=== PATIENT | female | born 1935 | race Hispanic/Latino ===

== ENCOUNTER 2021-10-04 06:10 | Inpatient (IN) | payer OTHER, MEDICARE ==
[~2021-10-04] VITALS: Ht 154.9 cm; Wt 42.2 kg
[2021-10-04] MEDS ORDERED: 0.9%NACL 1000ML 500 ML IV ONE (06:30)
[2021-10-04] MEDS ORDERED: ONDANSETRON 4MG INJ IVP ONE (06:30)
[2021-10-04] MEDS ORDERED: 0.9% NACL 500ML IV.SOLN 500 ML IV ONE (06:47)
[2021-10-04 06:50] LABS: BASOPHILS % (AUTO) 0.1 % (0.0-5.0); HEMATOCRIT 30.9 % (36-48); MEAN CORPUSCULAR HEMOGLOBIN 24.5 pg (27.0-33.0); MEAN CORPUSCULAR VOLUME 76.5 fL (79-99); MONOCYTES % (AUTO) 3.4 % (3.0-13.0); NEUTROPHILS % (AUTO) 88.1 % (40.0-77.0); PLATELET COUNT (AUTO) 303 K/uL (130-400); RED BLOOD CELL COUNT(AUTO) 4.04 MIL/uL (4.00-5.50); RED CELL DISTRIBUTION WIDTH 19.9 % (11.0-15.5)
[2021-10-04 07:52] LABS: CREATININE 0.6 mg/dL (0.5-1.5)
[2021-10-04 08:00] LABS: ALBUMIN 2.7 g/dL (3.5-5.0); BILIRUBIN,TOTAL 0.5 mg/dL (0.2-1.0); TOTAL PROTEIN, SERUM 9.7 g/dL (6.0-8.3)
[2021-10-04 08:57] LABS: POTASSIUM 3.4 mmol/L (3.5-5.1)
[2021-10-04] MEDS ORDERED: DIPHENHYDRAMINE HCL 25 MG CAPSULE PO PRN (11:00)
[2021-10-04] MEDS ORDERED: ACETAMINOPHEN 325 MG TAB PO PRN (11:00)
[2021-10-04] MEDS ORDERED: GUAIFENESIN-DM 200/20 MG 10 ML PO PRN (11:00)
[2021-10-04] MEDS ORDERED: ONDANSETRON 4MG INJ IV PRN (11:00)
[2021-10-04] MEDS ORDERED: LACTULOSE 20 GM/30 ML UDCUP PO PRN (11:00)
[2021-10-04] MEDS ORDERED: MAG/ALUM/SIMETH 30 ML UDCUP PO PRN (11:00)
[2021-10-04] MEDS: LEVOFLOXACIN 500 MG/D5W 100 ML 100 ML IV SCH (11:36)
[2021-10-04] MEDS: 0.9%NACL 1000ML 1,000 ML IV SCH (11:36)
[2021-10-04 11:39] LABS: POTASSIUM 3.6 mmol/L (3.5-5.1)
[2021-10-04] MEDS ORDERED: 0.9% NACL 500ML IV.SOLN 500 ML IV SCH ×2 (13:30→16:00)
[2021-10-04 14:52] LABS: RETICULOCYTE % (AUTO) 1.13 % (0.42-2.23)
[2021-10-04 14:59] LABS: APPEARANCE,URINE Clear (CLEAR); BILIRUBIN,URINE Negative (NEGATIVE); COLOR,URINE Yellow (YELLOW); GLUCOSE, URINE (UA) Negative (NEGATIVE); KETONES,URINE Negative (NEGATIVE); LEUKOCYTE ESTERASE ,URINE Trace (NEGATIVE); NITRATE,URINE Negative (NEGATIVE); OCCULT BLOOD,URINE Negative (NEGATIVE); PROTEIN,URINE Trace mg/dL (NEGATIVE)
[2021-10-04 15:08] LABS: % IRON SATURATION 7.5 % (22-44)
[2021-10-04 15:14] LABS: BACTERIA,URINE Rare /HPF (None Seen); WBC,URINE 0-1 /HPF (0-1)
[2021-10-04 15:15] LABS: SQUAMOUS EPITHELIAL CELL,UR Rare /HPF (0-2)
[2021-10-04 15:22] LABS: PHOSPHORUS 2.1 mg/dL (2.5-4.9); THYROID STIMULATING HORMONE 0.72 uIU/mL (0.36-3.74)
[2021-10-04] MEDS ORDERED: METRONIDAZOLE 500MG/100ML BAG 100 ML ONE (15:25)
[2021-10-04 20:27] VITALS: BP 94/55
[2021-10-04] MEDS ORDERED: FAMOTIDINE 20MG VIAL IV SCH (21:00)
[2021-10-04] MEDS: METRONIDAZOLE 500MG/100ML BAG 100 ML IVPB SCH (21:49)
[2021-10-05] VITALS (7 sets, daily range): BP systolic 96–123; BP diastolic 48–75
[2021-10-05] MEDS: MAGNESIUM 2GM PREMIX 50ML 50 ML IV SCH ×2 (02:31→09:13)
[2021-10-05 04:09] LABS: BASOPHILS % (AUTO) 0.1 % (0.0-5.0); EOSINOPHILS % (AUTO) 0.5 % (0.0-8.0); HEMATOCRIT 23.9 % (36-48); LYMPHOCYTES % (AUTO) 17.2 % (21.0-51.0); MEAN CORPUSCULAR HEMOGLOBIN 24.9 pg (27.0-33.0); MEAN CORPUSCULAR HGB CONC 32.6 g/dL (32.0-36.0); MEAN CORPUSCULAR VOLUME 76.4 fL (79-99); MONOCYTES % (AUTO) 6.3 % (3.0-13.0); NEUTROPHILS % (AUTO) 75.6 % (40.0-77.0); PLATELET COUNT (AUTO) 259 K/uL (130-400); RED BLOOD CELL COUNT(AUTO) 3.13 MIL/uL (4.00-5.50); RED CELL DISTRIBUTION WIDTH 20.2 % (11.0-15.5); WHITE BLOOD COUNT (AUTO) 8.8 K/uL (4.8-10.8)
[2021-10-05 04:35] LABS: ALBUMIN 2.1 g/dL (3.5-5.0); BILIRUBIN,TOTAL 0.2 mg/dL (0.2-1.0); CREATININE 0.5 mg/dL (0.5-1.5); POTASSIUM 3.2 mmol/L (3.5-5.1); TOTAL PROTEIN, SERUM 7.3 g/dL (6.0-8.3)
[2021-10-05] MEDS: METRONIDAZOLE 500MG/100ML BAG 100 ML IVPB SCH ×3 (05:28→21:20)
[2021-10-05] MEDS: 0.9%NACL 1000ML 1,000 ML IV SCH ×2 (05:33→17:37)
[2021-10-05] MEDS: PANTOPRAZOLE 40 MG/VIAL IVP SCH (08:49)
[2021-10-05] MEDS: NEUTRA-PHOS PACKET 1 EACH PO SCH ×3 (08:50→21:20)
[2021-10-05] MEDS: IRON SUCROSE COMPLEX 300 MG in 0.9% NACL 250ML 250 ML IV SCH (10:24)
[2021-10-05] MEDS ORDERED: COMPOUND IV MISC 1 EACH IVSOLN MISC PRN (10:30)
[2021-10-05] MEDS ORDERED: COMPOUND IV REFRIGERATED 1 EACH IVSOLN MISC PRN (10:30)
[2021-10-05] MEDS ORDERED: POTASSIUM CHLORIDE 20MEQ/100ML 100 ML IV PRN (11:00)
[2021-10-05] MEDS ORDERED: LIDOCAINE HCL-MPF 1% 2ML VIAL IV PRN (11:00)
[2021-10-05] MEDS ORDERED: POTASSIUM CHLORIDE 10% ELIXIR 20 MEQ/15 ML UDCUP PO PRN (11:00)
[2021-10-05] MEDS ORDERED: HALO5L PO (12:13)
[2021-10-05] MEDS ORDERED: CYCL30DR OU (12:13)
[2021-10-05] MEDS ORDERED: OMEP20CA12 PO (12:13)
[2021-10-05] MEDS ORDERED: METO-391 PO (12:13)
[2021-10-05] MEDS ORDERED: MEGE40TA8 PO (12:13)
[2021-10-05] MEDS ORDERED: CARB1TAB33 PO (12:13)
[2021-10-05] MEDS ORDERED: HYDR-3421 PO (12:13)
[2021-10-05] MEDS ORDERED: TRAM50TA4 PO (12:13)
[2021-10-05] MEDS: LEVOFLOXACIN 500 MG/D5W 100 ML 100 ML IV SCH (13:05)
[2021-10-05] MEDS: KCL 20 MEQ ERTAB PO PRN ×2 (13:41→17:16)
[2021-10-05 15:19] LABS: POTASSIUM 3.4 mmol/L (3.5-5.1)
[2021-10-06] MEDS: 0.9%NACL 1000ML 1,000 ML IV SCH ×2 (03:15→22:45)
[2021-10-06 04:06] VITALS: BP 100/59
[2021-10-06 04:08] LABS: BASOPHILS % (AUTO) 0.3 % (0.0-5.0); EOSINOPHILS % (AUTO) 2.1 % (0.0-8.0); HEMATOCRIT 23.3 % (36-48); LYMPHOCYTES % (AUTO) 20.8 % (21.0-51.0); MEAN CORPUSCULAR HGB CONC 32.2 g/dL (32.0-36.0); MEAN CORPUSCULAR VOLUME 74.7 fL (79-99); MONOCYTES % (AUTO) 8.9 % (3.0-13.0); NEUTROPHILS % (AUTO) 67.3 % (40.0-77.0); PLATELET COUNT (AUTO) 244 K/uL (130-400); RED BLOOD CELL COUNT(AUTO) 3.12 MIL/uL (4.00-5.50); RED CELL DISTRIBUTION WIDTH 20.2 % (11.0-15.5); WHITE BLOOD COUNT (AUTO) 6.5 K/uL (4.8-10.8)
[2021-10-06 04:21] LABS: CREATININE 0.4 mg/dL (0.5-1.5); MAGNESIUM 1.9 mg/dL (1.80-2.40); POTASSIUM 3.1 mmol/L (3.5-5.1)
[2021-10-06] MEDS: METRONIDAZOLE 500MG/100ML BAG 100 ML IVPB SCH ×3 (05:16→22:45)
[2021-10-06] MEDS: KCL 20 MEQ ERTAB PO PRN (06:16)
[2021-10-06 07:44] VITALS: BP 112/56
[2021-10-06] MEDS: PANTOPRAZOLE 40 MG/VIAL IVP SCH (07:58)
[2021-10-06] MEDS: IRON SUCROSE COMPLEX 300 MG in 0.9% NACL 250ML 250 ML IV SCH (07:58)
[2021-10-06] MEDS: NEUTRA-PHOS PACKET 1 EACH PO SCH (08:05)
[2021-10-06 11:12] VITALS: BP 111/59
[2021-10-06] MEDS: LEVOFLOXACIN 500 MG/D5W 100 ML 100 ML IV SCH (12:37)
[2021-10-06 16:24] VITALS: BP 106/60
[2021-10-06 20:05] VITALS: BP 92/55
[2021-10-07] VITALS (7 sets, daily range): BP systolic 96–130; BP diastolic 54–75
[2021-10-07] MEDS: METRONIDAZOLE 500MG/100ML BAG 100 ML IVPB SCH (05:00)
[2021-10-07 07:56] LABS: HEMATOCRIT 23.2 % (36-48); MEAN CORPUSCULAR HEMOGLOBIN 25.1 pg (27.0-33.0); MEAN CORPUSCULAR HGB CONC 34.1 g/dL (32.0-36.0); MEAN CORPUSCULAR VOLUME 73.7 fL (79-99); RED BLOOD CELL COUNT(AUTO) 3.15 MIL/uL (4.00-5.50); RED CELL DISTRIBUTION WIDTH 20.1 % (11.0-15.5); WHITE BLOOD COUNT (AUTO) 7.6 K/uL (4.8-10.8)
[2021-10-07 08:07] LABS: CREATININE 0.4 mg/dL (0.5-1.5)
[2021-10-07] MEDS: PANTOPRAZOLE 40 MG/VIAL IVP SCH (10:03)
[2021-10-07] MEDS: IRON SUCROSE COMPLEX 300 MG in 0.9% NACL 250ML 250 ML IV SCH (10:03)
[2021-10-07] MEDS ORDERED: POTASSIUM CHLORIDE 10% ELIXIR 20 MEQ/15 ML UDCUP PO SCH (12:00)
[2021-10-07] MEDS: FAMOTIDINE 20MG TAB PO SCH ×2 (12:36→20:38)
[2021-10-07] MEDS: BISACODYL 5 MG TABLET.DR PO SCH ×2 (12:36→20:38)
[2021-10-07] MEDS: ENOXAPARIN SODIUM 30 MG/0.3 ML SQ SCH (12:37)
[2021-10-07] MEDS: CYCLOSPORINE OU SCH (20:40)
[2021-10-07] MEDS: MAGNESIUM 2GM PREMIX 50ML 50 ML IV SCH (20:40)
[2021-10-08 04:00] VITALS: BP 111/66
[2021-10-08 04:18] LABS: BASOPHILS % (AUTO) 0.3 % (0.0-5.0); EOSINOPHILS % (AUTO) 1.7 % (0.0-8.0); HEMATOCRIT 23.8 % (36-48); LYMPHOCYTES % (AUTO) 18.9 % (21.0-51.0); MEAN CORPUSCULAR HEMOGLOBIN 25.2 pg (27.0-33.0); MEAN CORPUSCULAR VOLUME 74.1 fL (79-99); NEUTROPHILS % (AUTO) 67.9 % (40.0-77.0); NUCLEATED RED BLOOD CELLS 0.2 % (0.0-0.19); PLATELET COUNT (AUTO) 270 K/uL (130-400); RED BLOOD CELL COUNT(AUTO) 3.21 MIL/uL (4.00-5.50); RED CELL DISTRIBUTION WIDTH 20.2 % (11.0-15.5); WHITE BLOOD COUNT (AUTO) 9.4 K/uL (4.8-10.8)
[2021-10-08 04:43] LABS: CREATININE 0.4 mg/dL (0.5-1.5); POTASSIUM 3.8 mmol/L (3.5-5.1)
[2021-10-08 08:00] VITALS: BP 105/64
[2021-10-08] MEDS: CYCLOSPORINE OU SCH ×2 (09:00→20:04)
[2021-10-08] MEDS: FAMOTIDINE 20MG TAB PO SCH ×2 (09:11→20:03)
[2021-10-08] MEDS: BISACODYL 5 MG TABLET.DR PO SCH ×2 (09:11→20:03)
[2021-10-08] MEDS: IRON SUCROSE COMPLEX 300 MG in 0.9% NACL 250ML 250 ML IV SCH (09:12)
[2021-10-08] MEDS: ENOXAPARIN SODIUM 30 MG/0.3 ML SQ SCH (09:13)
[2021-10-08 12:00] VITALS: BP 110/68
[2021-10-08 16:00] VITALS: BP 106/66
[2021-10-08 20:00] VITALS: BP 110/68
[2021-10-09] VITALS: BP 112/62
[2021-10-09 04:00] VITALS: BP 90/58
[2021-10-09 07:39] LABS: BASOPHILS % (AUTO) 0.4 % (0.0-5.0); EOSINOPHILS % (AUTO) 1.5 % (0.0-8.0); HEMATOCRIT 23.8 % (36-48); LYMPHOCYTES % (AUTO) 20.3 % (21.0-51.0); MEAN CORPUSCULAR HEMOGLOBIN 24.3 pg (27.0-33.0); MEAN CORPUSCULAR HGB CONC 32.8 g/dL (32.0-36.0); MEAN CORPUSCULAR VOLUME 74.1 fL (79-99); MONOCYTES % (AUTO) 11.7 % (3.0-13.0); NEUTROPHILS % (AUTO) 64.7 % (40.0-77.0); PLATELET COUNT (AUTO) 262 K/uL (130-400); RED BLOOD CELL COUNT(AUTO) 3.21 MIL/uL (4.00-5.50); WHITE BLOOD COUNT (AUTO) 10.2 K/uL (4.8-10.8)
[2021-10-09 08:12] VITALS: BP 95/53
[2021-10-09 08:38] LABS: CREATININE 0.5 mg/dL (0.5-1.5); POTASSIUM 3.9 mmol/L (3.5-5.1)
[2021-10-09] MEDS: CYCLOSPORINE OU SCH ×2 (09:00→21:00)
[2021-10-09] MEDS: BISACODYL 5 MG TABLET.DR PO SCH ×2 (10:09→21:03)
[2021-10-09] MEDS: FAMOTIDINE 20MG TAB PO SCH ×2 (10:09→21:03)
[2021-10-09] MEDS: ENOXAPARIN SODIUM 30 MG/0.3 ML SQ SCH (10:13)
[2021-10-09 11:20] VITALS: BP 111/64
[2021-10-09 16:12] VITALS: BP 96/59
[2021-10-09 20:00] VITALS: BP 107/62
[2021-10-10] VITALS (7 sets, daily range): BP systolic 90–115; BP diastolic 50–67
[2021-10-10 06:59] LABS: BASOPHILS % (AUTO) 0.3 % (0.0-5.0); EOSINOPHILS % (AUTO) 2.9 % (0.0-8.0); HEMATOCRIT 23.6 % (36-48); LYMPHOCYTES % (AUTO) 21.3 % (21.0-51.0); MEAN CORPUSCULAR HEMOGLOBIN 25.5 pg (27.0-33.0); MEAN CORPUSCULAR HGB CONC 33.9 g/dL (32.0-36.0); MEAN CORPUSCULAR VOLUME 75.2 fL (79-99); MONOCYTES % (AUTO) 13.8 % (3.0-13.0); NEUTROPHILS % (AUTO) 60.1 % (40.0-77.0); PLATELET COUNT (AUTO) 285 K/uL (130-400); RED BLOOD CELL COUNT(AUTO) 3.14 MIL/uL (4.00-5.50); RED CELL DISTRIBUTION WIDTH 21.4 % (11.0-15.5); WHITE BLOOD COUNT (AUTO) 9.8 K/uL (4.8-10.8)
[2021-10-10 07:44] LABS: CREATININE 0.4 mg/dL (0.5-1.5); MAGNESIUM 1.6 mg/dL (1.80-2.40); POTASSIUM 3.6 mmol/L (3.5-5.1)
[2021-10-10] MEDS: BISACODYL 5 MG TABLET.DR PO SCH ×2 (07:48→21:00)
[2021-10-10] MEDS: FAMOTIDINE 20MG TAB PO SCH ×2 (07:48→21:20)
[2021-10-10] MEDS: CYCLOSPORINE OU SCH ×2 (09:00→21:00)
[2021-10-10] MEDS: ENOXAPARIN SODIUM 30 MG/0.3 ML SQ SCH (10:05)
[2021-10-11 04:18] VITALS: BP 112/58
[2021-10-11 05:53] LABS: BASOPHILS % (AUTO) 0.4 % (0.0-5.0); EOSINOPHILS % (AUTO) 2.7 % (0.0-8.0); HEMATOCRIT 25.7 % (36-48); LYMPHOCYTES % (AUTO) 21.7 % (21.0-51.0); MEAN CORPUSCULAR HEMOGLOBIN 24.6 pg (27.0-33.0); MEAN CORPUSCULAR HGB CONC 32.7 g/dL (32.0-36.0); MEAN CORPUSCULAR VOLUME 75.4 fL (79-99); MONOCYTES % (AUTO) 13.7 % (3.0-13.0); PLATELET COUNT (AUTO) 324 K/uL (130-400); RED BLOOD CELL COUNT(AUTO) 3.41 MIL/uL (4.00-5.50); RED CELL DISTRIBUTION WIDTH 21.7 % (11.0-15.5); WHITE BLOOD COUNT (AUTO) 7.8 K/uL (4.8-10.8)
[2021-10-11 06:15] LABS: BILIRUBIN,TOTAL 0.2 mg/dL (0.2-1.0); CREATININE 0.5 mg/dL (0.5-1.5); MAGNESIUM 1.7 mg/dL (1.80-2.40); POTASSIUM 4.2 mmol/L (3.5-5.1); TOTAL PROTEIN, SERUM 7.5 g/dL (6.0-8.3)
[2021-10-11 08:04] VITALS: BP 109/72
[2021-10-11] MEDS: BISACODYL 5 MG TABLET.DR PO SCH (09:00)
[2021-10-11] MEDS: CYCLOSPORINE OU SCH (09:00)
[2021-10-11] MEDS: ENOXAPARIN SODIUM 30 MG/0.3 ML SQ SCH (10:14)
[2021-10-11] MEDS: FAMOTIDINE 20MG TAB PO SCH (10:14)
[2021-10-11] MEDS: MAGNESIUM 2GM PREMIX 50ML 50 ML IV SCH (10:40)
[2021-10-11 11:26] VITALS: BP 100/58
[2021-10-11 16:16] VITALS: BP 110/76
== END 2021-10-11 18:00 | disposition home or self-care (01) | DRG 377 ==
LOC: EDH 06:10 → EDHIP 10:52 → 4BH 16:55
PROVIDERS: ADMIT Internal Medicine; ATTEND Internal Medicine
DX: K92.0 Hematemesis (principal); E43 Unspecified severe protein-calorie malnutrition; E87.1 Hypo-osmolality and hyponatremia; Z68.1 Body mass index [BMI] 19.9 or less, adult; C90.00 Multiple myeloma not having achieved remission; R64 Cachexia; K52.9 Noninfective gastroenteritis and colitis, unspecified; E86.1 Hypovolemia; J44.9 Chronic obstructive pulmonary disease, unspecified; M06.9 Rheumatoid arthritis, unspecified; G20 Parkinson's disease; D50.9 Iron deficiency anemia, unspecified; E87.6 Hypokalemia; D89.2 Hypergammaglobulinemia, unspecified; E83.42 Hypomagnesemia; F03.90 Unspecified dementia, unspecified severity, without behavioral disturbance, psychotic disturbance, mood disturbance, and anxiety; I80.8 Phlebitis and thrombophlebitis of other sites
CPT/HCPCS: 36415; 71045; 74176; 80048; 80051; 80053; 80061; 81001; 82270; 82306; 82330; 82607; 82728; 82746; 82784; 82948; 83540; 83550; 83605; 83615; 83690; 83735; 83930; 83935; 84100; 84132; 84145; 84156; 84166; 84443; 84484; 85025; 85027; 85045; 86147; 86325; 86334; 87040; 87088; 92526; 92610; 93005; 93971; 97039; C9113; G0378; J1650; J1756; J1956; J2405; J3475; J3490; J7030; J7040; J7050

== ENCOUNTER 2023-10-12 22:15 | Emergency (ER) | payer OTHER, MEDICARE ==
[~2023-10-12] VITALS: Ht 152.4 cm; Wt 42.2 kg
[~2023-10-12 22:15] MED LIST: CARB1TAB33 PO; CYCL30DR OU; HALO5L PO; HYDR-3421 PO; MEGE40TA8 PO; METO-391 PO; OMEP20CA12 PO; TRAM50TA4 PO
[2023-10-12 22:49] LABS: BASOPHILS # (AUTO) 0.03 K/uL (0.00-0.20); BASOPHILS % (AUTO) 0.3 % (0.0-5.0); EOSINOPHILS # (AUTO) 0.06 K/uL (0.00-0.70); EOSINOPHILS % (AUTO) 0.6 % (0.0-8.0); IMMATURE GRANULOCYTE ABSOLUTE 0.03 K/uL (0-1); LYMPHOCYTES # (AUTO) 0.9 K/uL (1.0-4.8); LYMPHOCYTES % (AUTO) 8.7 % (21.0-51.0); MEAN CORPUSCULAR HEMOGLOBIN 29.5 pg (27.0-33.0); MEAN CORPUSCULAR HGB CONC 34.1 g/dL (32.0-36.0); MEAN CORPUSCULAR VOLUME 86.7 fL (79-99); MONOCYTES # (AUTO) 0.5 K/uL (0.1-1.0); MONOCYTES % (AUTO) 4.7 % (3.0-13.0); NEUTROPHILS # (AUTO) 8.6 K/uL (1.8-7.7); NEUTROPHILS % (AUTO) 85.4 % (40.0-77.0); PLATELET COUNT (AUTO) 295 K/uL (130-400); RED BLOOD CELL COUNT(AUTO) 4.27 MIL/uL (4.00-5.50); RED CELL DISTRIBUTION WIDTH 15.7 % (11.0-15.5); WHITE BLOOD COUNT (AUTO) 10.1 K/uL (4.8-10.8)
[2023-10-12 22:59] LABS: CREATININE 0.7 mg/dL (0.5-1.0); POTASSIUM 4.9 mmol/L (3.5-5.1)
[2023-10-12 23:03] LABS: ALBUMIN 2.6 g/dL (3.5-5.0); BILIRUBIN,TOTAL 0.3 mg/dL (0.2-1.0); TOTAL PROTEIN, SERUM 8.1 g/dL (6.0-8.3)
[2023-10-12] MEDS: ONDANSETRON 4MG INJ IVP ONE (23:06)
[2023-10-12] MEDS: MAG/ALUM/SIMETH 30 ML UDCUP PO ONE (23:06)
[2023-10-12 23:40] LABS: WBC MORPHOLOGY CONSISTENT W/DIFF
[2023-10-12] MEDS ORDERED: OMEP40CA21 PO (23:57)
[2023-10-12] MEDS ORDERED: ONDA-104 PO (23:57)
[2023-10-13 00:26] VITALS: BP 96/62; PULSE 94; RESP 17; O2SAT 97
== END 2023-10-13 00:50 | disposition home or self-care (01) ==
LOC: EDH 22:15
DX: R11.2 Nausea with vomiting, unspecified (principal); R10.9 Unspecified abdominal pain; I10 Essential (primary) hypertension; E11.9 Type 2 diabetes mellitus without complications; M19.90 Unspecified osteoarthritis, unspecified site; Z79.899 Other long term (current) drug therapy; Z98.890 Other specified postprocedural states
CPT/HCPCS: 99283; 96374; 80053; 83690; 85025; 36415; J2405